=== PATIENT | female | born 1950 | race Caucasian/White ===

== ENCOUNTER → 2016-09-21 | Outpatient (CLI) | payer MEDICARE, BC | LOC: MW.CHIM 07:51 | PROVIDERS: ATTEND Internal Medicine | DX: M10.9 Gout, unspecified (principal); E11.9 Type 2 diabetes mellitus without complications; E79.0 Hyperuricemia without signs of inflammatory arthritis and tophaceous disease; I10 Essential (primary) hypertension; J44.9 Chronic obstructive pulmonary disease, unspecified | CPT/HCPCS: 36415; 83036; 84550; 99214 ==

== ENCOUNTER → 2016-09-25 | Outpatient (CLI) | payer MEDICARE, BC ==
--- NOTE | 2016-09-25 13:52 | MY ---
EXAMINATION: Bilateral digital mammography utilizing CAD. HISTORY: Screening exam. Comparison is made to previous studies dated 08/15/2015, 11/11/2012. FINDINGS: Bilateral scattered fibroglandular densities. No suspicious calcifications, masses or a rchitectural distortions. No pathologic appearing lymph nodes, no abnormal skin thickening or nipp le inversion. CAD highlighted regions appear normal at this time. IMPRESSION: BI-RADS category I - negative mammogram. Continued screening according to ACR-ACS gu idelines suggested. THE FALSE-NEGATIVE RATE OF MAMMOGRAM IS APPROXIMATELY 10%. MANAGEMENT OF A PALPABLE ABNORMALITY MUST BE BASED UPON CLINICAL GROUNDS. SENSITIVITY FOR DETECTION OF ABNORMALITIES IN DENSE BREASTS IS LOW. NOTE: A letter will be sent to the patient regarding findings. [facility] -- [facility] [place] [phone] - FAX [phone]
== END ==
LOC: MW.MAM 09:07
PROVIDERS: ATTEND Internal Medicine
DX: Z12.31 Encounter for screening mammogram for malignant neoplasm of breast (principal)
CPT/HCPCS: G0202; G0202-26

== ENCOUNTER → 2016-10-10 | Outpatient (CLI) | payer MEDICARE, BC | LOC: MW.CHPOD 08:00 | PROVIDERS: ATTEND Podiatrist Foot & Ankle Surgery | DX: R26.9 Unspecified abnormalities of gait and mobility (principal); I99.9 Unspecified disorder of circulatory system; M20.11 Hallux valgus (acquired), right foot; M20.12 Hallux valgus (acquired), left foot; L85.1 Acquired keratosis [keratoderma] palmaris et plantaris; E11.9 Type 2 diabetes mellitus without complications; I73.9 Peripheral vascular disease, unspecified | CPT/HCPCS: 11055; 99214 ==

== ENCOUNTER → 2016-10-31 | Outpatient (CLI) | payer MEDICARE, BC | LOC: MW.CHIM 12:47 | PROVIDERS: ATTEND Internal Medicine | DX: R30.0 Dysuria (principal); R31.9 Hematuria, unspecified | CPT/HCPCS: 81001; 87086; 87088; 87186 ==

== ENCOUNTER 2024-06-01 10:53 | Observation (INO) | payer MEDICARE, BC ==
[2024-06-01] MEDS ORDERED: Tranexamic Acid in NACL,ISO-OS 1,000 MG/100 ML Bag IV ONE ×4 (11:11→11:28)
[2024-06-01 11:28] LABS: BASOPHILS ABSOLUTE AUTO 0.06 K/uL (0.00-0.20); BASOPHILS PERCENT AUTO 0.5 % (0.0-1.0); EOSINOPHILS ABSOLUTE AUTO 0.17 K/uL (0.00-0.45); EOSINOPHILS PERCENT AUTO 1.3 % (0.0-6.0); HEMATOCRIT 38.4 % (37.0-47.0); HEMOGLOBIN 13.6 g/dL (12.0-16.0); IMMATURE GRAN ABSOLUTE AUTO 0.08 K/uL (0.00-0.05); IMMATURE GRAN PERCENT AUTO 0.6 % (0.0-0.4); LYMPHOCYTES ABSOLUTE AUTO 3.14 K/uL (1.00-4.80); LYMPHOCYTES PERCENT AUTO 24.9 % (24.0-44.0); MEAN CORPUSCULAR HEMOGLOBIN 32.2 pg (28.0-32.0); MEAN CORPUSCULAR HGB CONC 35.4 g/dL (32.0-36.0); MEAN PLATELET VOLUME 9.3 fL (9.4-12.3); MONOCYTES ABSOLUTE AUTO 0.69 K/uL (0.00-0.80); MONOCYTES PERCENT AUTO 5.5 % (0.0-8.0); NEUTROPHILS ABSOLUTE AUTO 8.46 K/uL (1.80-7.70); NEUTROPHILS PERCENT AUTO 67.2 % (41.0-71.0); PLATELET COUNT,PLT 411 K/uL (150-400); RED BLOOD CELL COUNT 4.22 M/uL (4.10-5.30)
[2024-06-01 11:49] LABS: BLOOD UREA NITROGEN,BUN 19 mg/dL (7.0-18.0); CALCIUM 9.9 mg/dL (8.5-10.1); CARBON DIOXIDE,CO2 29.6 mmol/L (21.0-32.0); CHLORIDE,CL 100 mmol/L (98-107); CREATININE 0.9 mg/dL (0.6-1.0); GLUCOSE RANDOM 133 mg/dL (74-106); POTASSIUM,K 3.7 mmol/L (3.5-5.1); SODIUM,NA 139 mmol/L (136-145)
[2024-06-01] MEDS: Tranexamic Acid in NACL,ISO-OS 1,000 MG in Premix Bag 1 BAG IV ONE (12:01)
[2024-06-01 12:02] LABS: ESTIMATED GFR 67 mL/min (>60)
[2024-06-01] MEDS: Tranexamic Acid in NACL,ISO-OS 100 ML ONE (12:02)
[2024-06-01] MEDS: Tranexamic Acid 1,000 MG/10 ML Vial ONE (12:02)
[2024-06-01] MEDS ORDERED: Ondansetron 4 MG/2 ML SDV IVPUSH PRN (16:05)
[2024-06-01] MEDS ORDERED: Albuterol 0.083% 2.5 MG/3 ML Neb Soln NEB PRN (16:05)
[2024-06-01] MEDS ORDERED: Ibuprofen 400 MG Tab PO PRN (17:04)
[2024-06-01] MEDS ORDERED: Nicotine 14 MG/24 Hr Patch TRDERM PRN (19:05)
[2024-06-01] MEDS: Acetaminophen 325 MG Tab PO PRN (21:16)
[2024-06-01] MEDS: Pravastatin 40 MG Tab PO SCH (21:17)
[2024-06-02 05:58] LABS: BASOPHILS ABSOLUTE AUTO 0.06 K/uL (0.00-0.20); BASOPHILS PERCENT AUTO 0.5 % (0.0-1.0); EOSINOPHILS ABSOLUTE AUTO 0.22 K/uL (0.00-0.45); EOSINOPHILS PERCENT AUTO 1.8 % (0.0-6.0); HEMATOCRIT 37.5 % (37.0-47.0); HEMOGLOBIN 13.2 g/dL (12.0-16.0); IMMATURE GRAN ABSOLUTE AUTO 0.06 K/uL (0.00-0.05); IMMATURE GRAN PERCENT AUTO 0.5 % (0.0-0.4); LYMPHOCYTES ABSOLUTE AUTO 4.44 K/uL (1.00-4.80); LYMPHOCYTES PERCENT AUTO 35.7 % (24.0-44.0); MEAN CORPUSCULAR HEMOGLOBIN 31.9 pg (28.0-32.0); MEAN CORPUSCULAR HGB CONC 35.2 g/dL (32.0-36.0); MEAN CORPUSCULAR VOLUME 90.6 fL (83.0-99.0); MEAN PLATELET VOLUME 9.1 fL (9.4-12.3); MONOCYTES ABSOLUTE AUTO 0.89 K/uL (0.00-0.80); MONOCYTES PERCENT AUTO 7.1 % (0.0-8.0); NEUTROPHILS ABSOLUTE AUTO 6.78 K/uL (1.80-7.70); NEUTROPHILS PERCENT AUTO 54.4 % (41.0-71.0); PLATELET COUNT,PLT 379 K/uL (150-400); RED BLOOD CELL COUNT 4.14 M/uL (4.10-5.30); WHITE BLOOD CELL COUNT,WBC 12.45 K/uL (3.9-11.3)
[2024-06-02 06:20] LABS: CALCIUM 9.4 mg/dL (8.5-10.1); CARBON DIOXIDE,CO2 25.8 mmol/L (21.0-32.0); CREATININE 0.8 mg/dL (0.6-1.0); EST CRCL DRUG DOSING (CG) 45.85 mL/min; POTASSIUM,K 3.6 mmol/L (3.5-5.1)
[2024-06-02] MEDS: Pantoprazole 40 MG Tab.CR PO SCH (07:32)
[2024-06-02] MEDS: cloNIDine 0.1 MG Tab PO SCH (10:08)
[2024-06-02] MEDS: Venlafaxine 75 MG Cap.ER PO SCH (10:09)
[2024-06-02] MEDS: Sertraline 100 MG Tab PO SCH (10:09)
[2024-06-02] MEDS: Hydrochlorothiazide 25 MG Tab PO SCH (10:09)
[2024-06-02] MEDS: amLODIPine 5 MG Tab PO SCH (10:10)
[2024-06-02] MEDS: Allopurinol 100 MG Tab PO SCH (10:10)
[2024-06-02] MEDS: Tiotropium BR/Olodaterol HCL 4 GM Inhalation Spray 2.5mcg/1 dose; 10 doses INH SCH (10:14)
[2024-06-02 11:44] VITALS: BP 175/76; PULSE 74
== END 2024-06-02 12:05 | disposition home or self-care (01) ==
LOC: MW.ED 10:53 → MW.MS 15:35
PROVIDERS: ADMIT Internal Medicine; ATTEND Internal Medicine
DX: T78.3XXA Angioneurotic edema, initial encounter (principal); N32.81 Overactive bladder; I10 Essential (primary) hypertension; E11.9 Type 2 diabetes mellitus without complications; Z79.84 Long term (current) use of oral hypoglycemic drugs; Z79.899 Other long term (current) drug therapy
CPT/HCPCS: 36415; 80048; 82947; 85025; A9270; G0378; 96374; 99284-25; J3490